=== PATIENT | male | born 1955 | race Two or more races ===

== ENCOUNTER 2018-01-31 22:27 | Emergency (ER) | payer OTHER ==
[~2018-01-31] VITALS: Ht 175.3 cm; Wt 76.7 kg
[~2018-01-31 22:27] MED LIST: ACET325 PO; AMIT25 PO; AMLO5 PO; AMLODIPINE; ASPI325 PO; ATOR80 PO; Advil200 M1; Amlodipine Besy10 MG PO; CIPR500 PO; Colace100 MG PO; DOCU100 PO; Dilantin 100 m100 MG PO; HYDR1TAB94 PO; HYDROCODONE; Inderal40 MG PO; Kristalose20 GM PO; LISI5; LISI5 PO; METO25 PO; Norco 5-325 Ta1 EACH PO; Norvasc5 MG PO; OMEP40CA12 PO; PSYL5.85P PO; TRAM50 PO
[2018-01-31 23:14] LABS: BASOPHILS ABSOLUTE AUTO 0.03 K/mm3 (0.00-0.23); BASOPHILS PERCENT AUTO 1 % (0-2); EOSINOPHILS ABSOLUTE AUTO 0.21 K/mm3 (0.00-0.68); EOSINOPHILS PERCENT AUTO 3 % (0-6); Hematocrit 43.5 % (37.0-53.0); Hemoglobin 13.9 g/dL (13.5-17.5); IMMATURE GRAN ABSOLUTE AUTO 0.02 K/mm3 (0.00-0.10); IMMATURE GRAN PERCENT AUTO 0 % (0-1); LYMPHOCYTES ABSOLUTE AUTO 1.68 K/mm3 (0.84-5.20); LYMPHOCYTES PERCENT AUTO 27 % (21-46); MONOCYTES ABSOLUTE AUTO 0.48 K/mm3 (0.16-1.47); MONOCYTES PERCENT AUTO 8 % (4-13); Mean Corpuscular HGB 29.1 pg (26.0-34.0); Mean Corpuscular Volume 91 fL (80-100); Mean Platelet Volume 9.5 fL (9.1-12.4); NEUTROPHILS ABSOLUTE AUTO 3.86 K/mm3 (1.96-9.15); NEUTROPHILS PERCENT AUTO 62 % (41-73); Platelet Count 210 K/mm3 (150-400); RDW Coefficient Variation 13.7 % (11.7-14.2); RDW Standard Deviation 45.8 fL (35.1-46.3); Red Blood Cell Count 4.78 M/mm3 (4.30-5.90); White Blood Cell Count 6.28 K/mm3 (4.00-11.30)
[2018-01-31 23:35] LABS: Anion Gap 9 mmol/L (6-16); Blood Urea Nitrogen 24 mg/dL (8-24); Bun/Creatinine Ratio 22.9 (12.0-20.0); CO2, Blood 22 mmol/L (21-32); Calcium, Blood 7.9 mg/dL (8.5-10.1); Chloride, Blood 111 mmol/L (98-108); Creatinine, Blood 1.05 mg/dL (0.60-1.20); Glomerular Filtration Rate >60 (60-); Glucose, Blood 85 mg/dL (70-99); Potassium, Blood 3.5 mmol/L (3.5-5.5); Sodium, Blood 142 mmol/L (136-145); Troponin I <0.015 ng/mL (0.000-0.040)
== END 2018-02-01 00:42 | disposition home or self-care (01) ==
LOC: ER 22:27
PROVIDERS: Emergency Medicine
DX: Z71.1 Person with feared health complaint in whom no diagnosis is made (principal); Z86.73 Personal history of transient ischemic attack (TIA), and cerebral infarction without residual deficits
CPT/HCPCS: 36415; 70450; 80048; 84484; 85025; 93005; 93010; 99284

== ENCOUNTER 2019-01-05 15:30 | Emergency (ER) | payer OTHER ==
[~2019-01-05] VITALS: Ht 170.2 cm; Wt 72.6 kg
[~2019-01-05 15:30] MED LIST changes: +Tylenol325 MG PO
== END 2019-01-05 17:53 | disposition home or self-care (01) ==
LOC: ER 15:30
DX: T18.128A Food in esophagus causing other injury, initial encounter (principal); Z86.73 Personal history of transient ischemic attack (TIA), and cerebral infarction without residual deficits
CPT/HCPCS: 36415; 96374; 99283-25; J1610

== ENCOUNTER 2019-02-07 02:34 | Day surgery (SDC) | payer OTHER ==
[~2019-02-07] VITALS: Ht 170.2 cm; Wt 61.2 kg
--- NOTE | 2019-02-07 08:30 | NUR ---
02/07/19 0829 Epifanio Alas History, Chart, Medications and Allergies reviewed before start of procedure.MONITOR INTACT WITH CONTINUOUS PULSE OXIMETRY AND INTERMITTENT BP.3-LEAD EKG REVIEWED WITH PHYSICIAN PRIOR TO START OF PROCEDURE.O2 VIA N/C INTACT THROUGHOUT SEDATION/PROCEDURE. Patient confirms NPO status and agrees with scheduled surgery.PATIENT DETERMINED TO BE ASA APPROPRIATE FOR PROPOFOL SEDATION PRIOR TO START OF PROCEDURE BY DR. FUNG.
--- NOTE | 2019-02-07 11:10 | NUR ---
AWAKE, PT TOLERATING LIQUIDS, AND PUDDING, DENIES ANY DISCOMFORT AT THIS TIME, SITTING ON RECLINER CHAIR.
--- NOTE | 2019-02-07 12:12 | NUR ---
DISCHARGE D/C'D HOME, DC INSTRUCTIONS GIVEN, VERBALIZED UNDERSTANDING, IV DC'D, CATH INTACT, DC'D VIA W/C TRANSPORT.
== END 2019-02-07 12:11 | disposition home or self-care (01) ==
LOC: ER 02:34 → SURS 07:20 → ER 07:20 → SURS 07:20 → ORSCMMR 09:41 → SURS 10:02 → ORSCMMR 12:11 → SURS 12:11
PROVIDERS: Internal Medicine Gastroenterology
PROC: 0DC58ZZ Extirpation of Matter from Esophagus, Via Natural or Artificial Opening Endoscopic (ICD-10-PCS; principal; 2019-02-07 07:30)
PROC: 0D758ZZ Dilation of Esophagus, Via Natural or Artificial Opening Endoscopic (ICD-10-PCS; principal; 2019-02-07 07:30)
DX: T18.128A Food in esophagus causing other injury, initial encounter (principal); Q39.4 Esophageal web; I10 Essential (primary) hypertension; E78.5 Hyperlipidemia, unspecified; I69.354 Hemiplegia and hemiparesis following cerebral infarction affecting left non-dominant side; R56.9 Unspecified convulsions
CPT/HCPCS: 71045; 96374; 96375; 99284-25; J1610; J2704; J3360; J7120

== ENCOUNTER 2019-04-09 22:52 | Emergency (ER) | payer OTHER ==
[~2019-04-09] VITALS: Ht 165.1 cm; Wt 61.2 kg
[2019-04-10] MEDS ORDERED: Norco 5-325 Ta1 EACH PO (00:38)
== END 2019-04-10 02:15 | disposition home or self-care (01) ==
LOC: ER 22:52
DX: T21.02XA Burn of unspecified degree of abdominal wall, initial encounter (principal); T31.0 Burns involving less than 10% of body surface; X10.1XXA Contact with hot food, initial encounter; Z88.5 Allergy status to narcotic agent
CPT/HCPCS: 16020; 96374-59; 99283-25; A9270; J1170

== ENCOUNTER 2019-11-18 15:23 | Emergency (ER) | payer OTHER ==
[~2019-11-18] VITALS: Ht 170.2 cm; Wt 72.6 kg
[2019-11-18 18:18] LABS: BASOPHILS ABSOLUTE AUTO 0.04 K/mm3 (0.00-0.23); BASOPHILS PERCENT AUTO 0 % (0-2); EOSINOPHILS ABSOLUTE AUTO 0.13 K/mm3 (0.00-0.68); EOSINOPHILS PERCENT AUTO 1 % (0-6); Hemoglobin 12.5 g/dL (13.5-17.5); IMMATURE GRAN ABSOLUTE AUTO 0.03 K/mm3 (0.00-0.10); IMMATURE GRAN PERCENT AUTO 0 % (0-1); LYMPHOCYTES ABSOLUTE AUTO 0.91 K/mm3 (0.84-5.20); LYMPHOCYTES PERCENT AUTO 10 % (21-46); MONOCYTES PERCENT AUTO 9 % (4-13); Mean Corpuscular HGB 28.4 pg (26.0-34.0); Mean Corpuscular HGB Conc 31.3 g/dL (31.5-36.5); Mean Corpuscular Volume 91 fL (80-100); Mean Platelet Volume 8.9 fL (9.1-12.4); NEUTROPHILS ABSOLUTE AUTO 7.29 K/mm3 (1.96-9.15); NEUTROPHILS PERCENT AUTO 79 % (41-73); Platelet Count 293 K/mm3 (150-400); RDW Coefficient Variation 14.7 % (11.7-14.2); RDW Standard Deviation 49.1 fL (35.1-46.3)
[2019-11-18 18:49] LABS: Anion Gap 6 mmol/L (6-16); Blood Urea Nitrogen 26 mg/dL (8-24); Bun/Creatinine Ratio 27.8 (12.0-20.0); CO2, Blood 30 mmol/L (21-32); Calcium, Blood 8.6 mg/dL (8.5-10.1); Chloride, Blood 110 mmol/L (98-108); Creatinine, Blood 0.93 mg/dL (0.60-1.20); Glomerular Filtration Rate >60 (60-); Glucose, Blood 90 mg/dL (70-99); Potassium, Blood 3.5 mmol/L (3.5-5.5); Sodium, Blood 146 mmol/L (136-145)
[2019-11-18] MEDS ORDERED: IBUP600 PO (19:20)
== END 2019-11-18 21:15 | disposition home or self-care (01) ==
LOC: ER 15:23
PROVIDERS: Emergency Medicine
DX: S20.212A Contusion of left front wall of thorax, initial encounter (principal); Z86.73 Personal history of transient ischemic attack (TIA), and cerebral infarction without residual deficits; X58.XXXA Exposure to other specified factors, initial encounter
CPT/HCPCS: 36415; 73030; 80048; 85025; 99284-25; A9270-GY

== ENCOUNTER 2019-12-02 19:09 | Inpatient (IN) | payer OTHER ==
[~2019-12-02] VITALS: Ht 160 cm; Wt 56.4 kg
[~2019-12-02 19:09] MED LIST changes: +IBUP600 PO
[2019-12-02 19:35] LABS: BASOPHILS ABSOLUTE AUTO 0.04 K/mm3 (0.00-0.23); BASOPHILS PERCENT AUTO 0 % (0-2); EOSINOPHILS ABSOLUTE AUTO 0.01 K/mm3 (0.00-0.68); EOSINOPHILS PERCENT AUTO 0 % (0-6); Hematocrit 48.1 % (37.0-53.0); Hemoglobin 15.1 g/dL (13.5-17.5); IMMATURE GRAN ABSOLUTE AUTO 0.11 K/mm3 (0.00-0.10); IMMATURE GRAN PERCENT AUTO 1 % (0-1); LYMPHOCYTES ABSOLUTE AUTO 1.26 K/mm3 (0.84-5.20); LYMPHOCYTES PERCENT AUTO 7 % (21-46); MONOCYTES ABSOLUTE AUTO 1.59 K/mm3 (0.16-1.47); MONOCYTES PERCENT AUTO 8 % (4-13); Mean Corpuscular HGB 28.2 pg (26.0-34.0); Mean Corpuscular HGB Conc 31.4 g/dL (31.5-36.5); Mean Corpuscular Volume 90 fL (80-100); Mean Platelet Volume 9.2 fL (9.1-12.4); NEUTROPHILS ABSOLUTE AUTO 15.85 K/mm3 (1.96-9.15); NEUTROPHILS PERCENT AUTO 84 % (41-73); Platelet Count 545 K/mm3 (150-400); RDW Coefficient Variation 14.3 % (11.7-14.2); RDW Standard Deviation 47.1 fL (35.1-46.3); Red Blood Cell Count 5.35 M/mm3 (4.30-5.90); White Blood Cell Count 18.86 K/mm3 (4.00-11.30)
[2019-12-02 20:15] LABS: Albumin, Blood 2.8 g/dL (3.4-5.0); Albumin/Globulin Ratio 0.6 (0.8-1.8); Bilirubin, Total 0.7 mg/dL (0.1-1.0); Bun/Creatinine Ratio 38.4 (12.0-20.0); Calcium, Blood 9.3 mg/dL (8.5-10.1); Creatinine, Blood 1.85 mg/dL (0.60-1.20); Globulin, Blood 4.8 g/dL (2.2-4.0); Potassium, Blood 4.7 mmol/L (3.5-5.5); Total Protein, Blood 7.6 g/dL (6.4-8.2)
[2019-12-03 04:41] LABS: BASOPHILS ABSOLUTE AUTO 0.04 K/mm3 (0.00-0.23); BASOPHILS PERCENT AUTO 0 % (0-2); Bicarbonate Venous 15.9 mmol/L (24.0-30.0); EOSINOPHILS PERCENT AUTO 0 % (0-6); Hematocrit 36.5 % (37.0-53.0); Hemoglobin 11.4 g/dL (13.5-17.5); IMMATURE GRAN ABSOLUTE AUTO 0.09 K/mm3 (0.00-0.10); IMMATURE GRAN PERCENT AUTO 0 % (0-1); LYMPHOCYTES ABSOLUTE AUTO 0.95 K/mm3 (0.84-5.20); LYMPHOCYTES PERCENT AUTO 5 % (21-46); MONOCYTES ABSOLUTE AUTO 1.11 K/mm3 (0.16-1.47); MONOCYTES PERCENT AUTO 6 % (4-13); Mean Corpuscular HGB 28.2 pg (26.0-34.0); Mean Corpuscular HGB Conc 31.2 g/dL (31.5-36.5); Mean Corpuscular Volume 90 fL (80-100); Mean Platelet Volume 9.3 fL (9.1-12.4); NEUTROPHILS ABSOLUTE AUTO 17.89 K/mm3 (1.96-9.15); NEUTROPHILS PERCENT AUTO 89 % (41-73); PCO2 Venous 22.3 mmHg (38-42); PO2 Venous 108 mmHg (38-42); Platelet Count 338 K/mm3 (150-400); RDW Coefficient Variation 14.3 % (11.7-14.2); RDW Standard Deviation 47.6 fL (35.1-46.3); Red Blood Cell Count 4.04 M/mm3 (4.30-5.90); White Blood Cell Count 20.08 K/mm3 (4.00-11.30); pH Blood Venous 7.36 (7.34-7.37)
[2019-12-03 04:42] LABS: Base Excess Venous -12.7 mmol/L
[2019-12-03 04:58] LABS: Anion Gap 11 mmol/L (6-16); Blood Urea Nitrogen 69 mg/dL (8-24); Bun/Creatinine Ratio 35.9 (12.0-20.0); CO2, Blood 14 mmol/L (21-32); Calcium, Blood 7.8 mg/dL (8.5-10.1); Chloride, Blood 120 mmol/L (98-108); Creatinine, Blood 1.92 mg/dL (0.60-1.20); Glomerular Filtration Rate 38 (60-); Glucose, Blood 96 mg/dL (70-99); Potassium, Blood 4.6 mmol/L (3.5-5.5); Sodium, Blood 145 mmol/L (136-145); Vancomycin, Random 26.7 ug/mL
[2019-12-03 06:03] LABS: Source, Urine Catheter
--- NOTE | 2019-12-03 06:20 | NUR ---
SHIFT SUMMARY PT ARRIVED FROM UNIT UNRESONSIVE, NOT FOLLOWING COMMANDS, ONLY MOANING. NOW, PT IS MOANING AND ANSWERING SIMPLE QUESTIONS (YES/NO). PT STILL NOT FOLLOWING COMMANDS. PT HAS LEFT SIDE DEFICITS FROM A PREVIOUS CVA. BLADDER SCAN REVEALING 515ML URINE IN BLADDER, BENITEZ CATHETER INSERTED FOR URINE RETENTION AND SKIN ISSUES. PT HAS WHAT APPEARS TO BE AN OLD BURN ON L SIDE, OPEN AND OOZING SEROUS SANGUINOUS FLUID. ENTIRE BACK IS REDDENED, STAGE 1 PRESSURE ULCER. STAGE 1 ULCER ON BUTTOCKS WELL. PATIENT L ARM DOES NOT FLEX. PATIENT LEGS CONTRACTED- CAN NOT STRAIGHTEN. FEET ARE COOL AND L FOOT IS DISCOLORED WITH PATCHY WHITE MOIST SKIN. LEFT HAND ALSO THE SAME. THERE IS ALSO SKIN BREAKDOWN BEHIND BILATERAL KNEES AND ANKLES. CAP REFILL GREATER THAN 3SECONDS. PATIENT HAD BALOONING OF RCA WITH R RADIAL ACCESS. TR BAND IN PLACE WITH 6ML AIR REMAINING. NO HEMATOMA OR BLEEDING FROM TR BAND NOTED. PATIENT ON HEPARIN GTT AT 13 U/KG/HR (14.6 ML/HR). LACTIC ACID TRENDING DOWN. PATIENT APPEARS TO BE IN PAIN DESPITE 50MCG FENTANYL PRN Q4H. LUNGS CTAB. VSS. AFEBRILE. WILL CONTINUE TO MONITOR.
[2019-12-03 06:49] LABS: Blood, Urine 3+ (Neg); Glucose Qualitative, Urine Neg (Neg); Ketones, Urine 1+ (Neg); Leukocyte Esterase, Urine 2+ (Neg); Nitrite, Urine Neg (Neg); Protein, Urine 2+ (Neg); Specific Gravity, Urine 1.015 (1.003-1.022); Urobilinogen, Urine 1+ (Normal)
[2019-12-03 07:02] LABS: Appearance, Urine Cloudy (Clear); Bilirubin, Urine 1+ (Neg); Color, Urine Amber (P-Yellow)
[2019-12-03 07:05] LABS: Bacteria Many /hpf; Mucus Heavy (0-Heavy); Squamous Epithelial Cells Few /hpf (Few)
--- NOTE | 2019-12-03 08:01 | NUR ---
ASSUMED CARE RECEIVED REPORT FROM ROSCOE GRANADOS. PT IS LYING IN BED MOANING, AWAKE. ABLE TO ANSWER SOME QUESTIONS WITH YES/NO. HE HAS A TR BAND WITH 2ML INFLATED. RIGHT RADIAL SITE. GOOD PULSE, CAP REFIL, AND WARMTH TO HAND. HE IS ON LR AT 125ML/HR AND HEPARIN AT 13 UNITS/KG/HR. HE HAS STABLE VITALS, ST DEPRESSION IN V1, BUT PER REPORT IS AN IMPROVMENT, GOOD BP. BED LOW AND LOCKED.
--- NOTE | 2019-12-03 10:51 | NUR ---
echocardiogram completed
--- NOTE | 2019-12-03 12:00 | NUR ---
UPDATE TR BAND OFF, OPSITE AND HANDBOARD IN PLACE. SITE IS [facility]. HEPARIN GTTP WAS INCREASED TO 15UNITS/KG/HOUR, ALONG WITH A 3000 UNIT BOLUS AROUND [id number]; DUE TO A SUBTHERAPEUTIC PTT. FAMILY HAS BEEN BY AND WILL BE BACK, INTERESTED INTO TALKING TO PALLIATIVE CARE.
--- NOTE | 2019-12-03 17:31 | NUR ---
UPDATE FAMILY SAID THEY DO NOT HAVE A CAR, SO SOON THEY GET AHOLD OF SOMEONE THAT CAN HELP THEY WILL COME TO HOSPITAL. PALLIATIVE CARE AND CARE MANAGEMENT INTERESTED IN MEETING WITH FAMILY TO DISCUSS PT'S SITUATION. DR. BLACKWOOD CAME TO ICU AND EVALUATED PT. SHE TOLD ME TO PASS ALONG THE MESSAGE THAT SHE WOULD LIKE TO BE CALLED WITH THE PRELIM RESULTS OF THE URINE CULTURE.
--- NOTE | 2019-12-03 19:30 | NUR ---
ASSUMED CARE NOTE: ASSUMED CARE OF PT AT 1900, RECEVIED REPORT FROM LASHAY MALHOTRA. PT RESPONDS TO VERBAL AND PAINFUL STIMULI. PT IS UNABLE TO FOLLOW COMMANDS AT THIS TIME. HE REPEATS THE SAME WORDS " PLEASE HELP ME". PT IS ON RA WITH SPO2 AT 100. PT IN SINUS ARACELIS WITH HR IN THE 50'S. BENITEZ DRAINING PUMA URINE. BED AT LOWEST LEVEL. WILL MONITOR PT T/O SHIFT. HEPARIN RUNNING AT 15U/KG/HR.
--- NOTE | 2019-12-03 19:44 | NUR ---
SHIFT SUMMARY/UPDATE PT IS SLIGHTLY OBTUNDED S/P DILAUDID (1MG IV). HE HAS BEEN SLEEPING, AND WHEN AWAKE ISN'T ALERT HE WAS THIS MORNING. HE STILL MOANS, BUT DOES NOT SPEAK MUCH. HIS BLOOD PRESSURE WAS SOFT (SEE VS). AT THE END OF THE SHIFT HIS RIGHT SIDE OF HIS BODY WAS MORE COOL THAN HIS LEFT SIDE. SPECIALLY IN HIS HAND AND FOOT. HE STILL HAD PULSES, AND CAP REFIL < 3s. HE HAS A POOR PLETH ON THE SPO2 PROBE. DILAUDID MAY NOT BE THE BEST CHOICE FOR HIM GOING FURTHER. HOWEVER, HE NEEDS PAIN CONTROL, BECAUSE THE WOUNDS ON HIS BODY ARE EXTENSIVE AND SEVERE. THE FAMILY STATES THEY ARE NEW TO THE LAST FEW DAYS. BUT THESE WOUNDS LOOK LIKE THEY HAVE BEEN DEVELOPING. PALLIATIVE CARE, STAGE PRODUCER, AND CARE MANAGEMENT ARE INVOLVED. I BELIEVE AN APS CASE HAS BEEN STARTED. FAMILY HAS ONLY BEEN BY FOR A FEW MINUTES. THEY DO NOT HAVE A CAR SO TRANSPORTATION IS AN ISSUE FOR THEM. THEY ARE PLANNING ON COMING BY [facility]. DR. BLACKWOOD HAS COME BY TODAY AND HAS SEEN PT, SHE WILL COMMUNICATE WITH THE HOSPITALIST REGARDING PLAN OF CARE.
--- NOTE | 2019-12-04 01:08 | NUR ---
UPDATE: PT YELLING OUT "'PLEASE HELP ME". WHEN ASKED WHAT HE NEEDS HE STATES " I CAN'T BREATH" REACHING FOR NG TUBE. SPO2 READING 100%. LUNG SOUNDS CLEAR T/O. PT STATES HE IS IN PAIN. MEDICATING PER EMAR.
--- NOTE | 2019-12-04 03:17 | NUR ---
UPDATE: 0130: PT SCREAMING OUT " I AM GOING TO ", " I AM GOING TO FALL, HELP ME". PT REPOSITIONED AND ORAL CARE WAS PROVIDED. PT C/O PAIN, PT MEDICATED PER EMAR.
[2019-12-04 06:03] LABS: BASOPHILS ABSOLUTE AUTO 0.01 K/mm3 (0.00-0.23); BASOPHILS PERCENT AUTO 0 % (0-2); EOSINOPHILS ABSOLUTE AUTO 0.01 K/mm3 (0.00-0.68); EOSINOPHILS PERCENT AUTO 0 % (0-6); Hematocrit 31.7 % (37.0-53.0); Hemoglobin 9.8 g/dL (13.5-17.5); IMMATURE GRAN ABSOLUTE AUTO 0.05 K/mm3 (0.00-0.10); IMMATURE GRAN PERCENT AUTO 0 % (0-1); LYMPHOCYTES ABSOLUTE AUTO 1.13 K/mm3 (0.84-5.20); LYMPHOCYTES PERCENT AUTO 9 % (21-46); MONOCYTES ABSOLUTE AUTO 1.14 K/mm3 (0.16-1.47); MONOCYTES PERCENT AUTO 9 % (4-13); Mean Corpuscular HGB 28.5 pg (26.0-34.0); Mean Corpuscular HGB Conc 30.9 g/dL (31.5-36.5); Mean Corpuscular Volume 92 fL (80-100); Mean Platelet Volume 9.4 fL (9.1-12.4); NEUTROPHILS ABSOLUTE AUTO 10.01 K/mm3 (1.96-9.15); NEUTROPHILS PERCENT AUTO 81 % (41-73); Platelet Count 271 K/mm3 (150-400); RDW Coefficient Variation 14.6 % (11.7-14.2); RDW Standard Deviation 49.1 fL (35.1-46.3); Red Blood Cell Count 3.44 M/mm3 (4.30-5.90); White Blood Cell Count 12.35 K/mm3 (4.00-11.30)
[2019-12-04 06:26] LABS: Alanine Aminotransfer (ALT/SGP 34 U/L (12-78); Albumin, Blood 1.9 g/dL (3.4-5.0); Albumin/Globulin Ratio 0.6 (0.8-1.8); Alk Phos 55 U/L (50-136); Anion Gap 7 mmol/L (6-16); Aspartate Aminotrans (AST/SGOT 149 U/L (12-37); Bilirubin, Total 0.4 mg/dL (0.1-1.0); Blood Urea Nitrogen 52 mg/dL (8-24); Bun/Creatinine Ratio 37.1 (12.0-20.0); CO2, Blood 19 mmol/L (21-32); Chloride, Blood 121 mmol/L (98-108); Globulin, Blood 3.2 g/dL (2.2-4.0); Glomerular Filtration Rate 54 (60-); Glucose, Blood 79 mg/dL (70-99); Potassium, Blood 3.8 mmol/L (3.5-5.5); Sodium, Blood 147 mmol/L (136-145); Total Protein, Blood 5.1 g/dL (6.4-8.2); Vancomycin, Random 22.2 ug/mL
--- NOTE | 2019-12-04 06:26 | NUR ---
SHIFT SUMMARY: SEE PREVIOUS NOTES. PT REMAINS ALERT AND ORIENTED TO SELF. PT HAS BEEN C/O PAIN T/O SHIFT, HAS REQUIRED PAIN MEDS AROUND THE CLOCK. AT 0600, PT PULLED OUT NG TUBE. NEW NG TUBE WAS PLACED, AWATING X-RAY FOR PLACEMENT CONFIRMATION. SWR APPLIED TO RIGHT WRIST. HEPARIN INCREASED TO 17U/KG/HR. WILL CONTINUE TO MONITOR PT UNTIL REPORT IS GIVEN TO ONCOMING SHIFT. BED AT LOWEST LEVEL.
--- NOTE | 2019-12-04 07:15 | NUR ---
ASSUMED CARE: THIS RN ENTERS ROOM D/T HEARING PT CALL OUT "HELP ME". UPON ENTERING THE ROOM PT STATES HIS NOSE HURTS, EDUCATED PT ON THE REASON FOR HIS NOSE HURTING D/T HAVING AN NG TUBE COMING OUT OF IT. ATTEMPTED TO REPOSSITION THE TUBE, BUT PT CONTINUES TO YELL OUT "HELP ME". EDUCATED THE PT ON NEEDING TO GET REPORT AND WILL ATEMPT TO ASSIST THE PT IN BETTER CARE OF HIS DISCOMFORT. TALKED WITH RN PROVIDER RELATIONS MELIDA LAWRENCE AND WAS NOTIFIED DILAUIDID WAS HELD AND CAN NOW BE GIVEN. OBTAINED 1MG OF DILAUDID FROM THE [facility] AND RECEIVED BEDSIDE REPORT FROM DAY RN. WHILE GETTING REPORT PT STATES NUMEROUS TIMES "HELP ME" AT ONE POINT HE SAID "TAKE THIS OUT OF MY NOSE" PT EDUCATED ON THE NEED FOR IT AND IT NEEDING TO BE REPLACED IF HE TAKES IT OUT. ALTHOUGH THIS RN AND THE NOC RN ARE IN THE ROOM PT CONTINUES TO YELL OUT "HELP ME". PT GIVEN PAIN MEDCIATIONS AT THIS TIME.
--- NOTE | 2019-12-04 07:45 | NUR ---
DR CARTER: IN TO SEE THE PT CULTURE SWAB OF THE L HIP OBTAINED. STATES THE CIRCULAR SCABS TRHAT ARE PRESENT HAVE BEEN THERE FOR "AWHILE" IN WEEKS. STATES SHE HAS NOT SEEN HIM ON AN OUT PT BASIS FOR HIS, BUT FROM HER EXPERIANCE THE WOUNDS/SCABS HAVE BEEN THERE FOR AT LEAST WEEKS NOT 'JUST APPERED' PREVIOUSLY REPORTED FROM FAMILY TO PREVIOUS STAFF MEMBERS. CULTURE SENT TO LAB.
--- NOTE | 2019-12-04 11:55 | NUR ---
FAMILY: TALKED ON THE PHONE WITH LAILA THE POA FOR THE PT. SHE STATES PATIENTS INFECTIONS COULD BE FROM HIM SCRATCHING AT HIS SKIN AFTER HE SOILS HIMSELF. SHE CONTINUES TO STATE THE PT HAD "SOMEONE" COME OUT TO HELP WITH THE PT, BUT THEY STOPPED COMING D/T THE WAY HE WOULD TREAT THEM. STATES PT ONLY LAYS ON HIS L SIDE AND USES AN OVER THE HEAD DEVICE TO MOVE SELF, BUT FAVORS THAT L SIDE. SHE CONTINUES TO STATE WHEN "THEY" WOULD CHANGE HIM THEY DIDN'T NOTICE THIS ISSUE WITH HIS SKIN UNTIL JUST PRIOR TO HIM COMTING TO THE HOSPITAL. LAILA ALSO STATES PRIOR TO THIS ADMIT PT WAS BROUGHT TO THE ED AND WAS DISCHARGE WITH JUST IBUPROPHEN. THIS RN CALLED ADITHYA ANG TO CALL LAILA TO DISCUSS DISCHARGE PLANNING AND PALLATIVE CARE.
[2019-12-04 13:43] LABS: Vancomycin, Random 20.1 ug/mL
--- NOTE | 2019-12-04 15:00 | NUR ---
EDUCATION TO PT AND FAMILY: FILLER WIPER ARIVES TO TALK WITH THE FAMILY. PALATIVE CARE AND THE CASE MANAGURE NOTIFY THIS RN THEY ARE GOING TO BE DISCHARGING PT HOME ON HOSPICE. FAMILY EDUCATED ON NEED TO CHANGE CODE STATUS. FAMILY APPEARS TO BE TALKING OVER FILLER WIPER OR THIS RN WHILE TRYING TO EDUCATE ON WHAT DNR CODE STATUS MEANS. DR CAME IN TO THE ROOM TO TALK WITH THE FAMILY. THIS RN REMAINED IN THE ROOM. THE FAMILY WAS NOTED TO INTRUPT THE DR ON SEVERAL OCCATIONS APPEARING TO ALMOST TALK OVER THE DR. THIS RN IS UNAWARE IF FAMILY IS FULLY UNDERSTANDING THE SITUATION AT HAND. DR VERBALIZED TO THE FAMILY WITH THIS RN IN THE ROOM PT IS NOT TO HAVE ANYTHING TO EAT OR DRINK D/T RISK OF ASPIRATION. WILL COINTINUE TO MONITOR AND ASSESS FURTHER.
[2019-12-04 15:55] LABS: U Amphetamine Screen Not Detected; U Barbituate Screen Not Detected; U Benzodiazapine Screen Not Detected; U Buprenorphine Screen Not Detected; U Cannabinoids Screen DETECTED; U Cocaine Screen Not Detected; U Methadone Screen Not Detected; U Methamphetamine Screen Not Detected; U Opiates Screen DETECTED; U Oxycodone Screen Not Detected; U Phencyclidine Screen Not Detected; U Propoxyphene Screen Not Detected
--- NOTE | 2019-12-04 16:18 | NUR ---
Clinical Visit; Pt is resting quietly for some of the visit. Towards the end of the visit, he became somewhat agitated and was comforted by his family. Discussed plan for pt to discharge to hospice. Present is the pt's nephew and a caregiver, Ana. They are agreeable to take him home on hospice. Chary, social insurance adviser, is present also and will begin on arrangements for discharge. They are not sure they want to place him on comfort care. They express that they may want to continue to treatment until the pt discharges. They agree to communicate with nursing if they would like a change in the care plan. No other concerns. Hospice services are discussed. RN visits, bath aid, equipment.
--- NOTE | 2019-12-04 17:39 | NUR ---
UPDATE: PT IS HEARD YELLING OUT "HELP ME" "WATER". PT IS ASKED IF HE KNOWS WHERE HE IS HE STATES "NO" ASKED PT TO STATE THE YEAR PT STATES "I DON'T KNOW" PT ASKED WHO THE PRESEDENT IS PT STATES "I DON'T KNOW". REPOSSITIONED PT AND ATTEMPTED TO DO SOME SMALL ROM EXERCISES, BUT PT STATES "STOP THAT" PT PROVIDED WITH PAIN MEDICATIONS AFTER MINIMAL REPOSITIONING.
--- NOTE | 2019-12-04 18:45 | NUR ---
LOW BP: PT IS NOTED TO HAVE LOW BP AFTER GIVING 1MG OF DILAUDED PER ORDER. PT WAKES EASILY TO VERBAL STIMULATION. SAT UP APPROX 25 DEGREES AND GAVE 250 BOLUS OF LR. PT IS NOTED TO HAVE RETURNED TO A MORE NORMAL BP FOR HIM.
--- NOTE | 2019-12-04 20:30 | NUR ---
PT RESTING IN BED. WHEN ASKED WHERE HE IS PT STATES "AT THE BANK". ANY OTHER ORIENTATION QUESTIONS PT STATES "I DON'T KNOW". PT CONTINUOUSLY YELLS "HELP". WILL ALSO ASK FOR WATER. USED SUCTION SWAB TO MOISTEN MOUTH AND DID ORAL CARE BUT PT CONTINUES TO YELL FOR WATER. EDUCATED WHY WE CANNOT GIVE HIM WATER YET. PT HAS CONTRACTED BILAT LEGS AND L ARM. R ARM HAS LIMITED ROM BUT HE CAN REACH UP TO FACE AND GET TO NG TUBE. TOOK ABDOMINAL BINDER OFF TO GIVE SKIN SOME TIME TO BREATHE. SKIN HAS OPEN AREAS ALL THROUGHOUT BACK, LEFT SIDE, AND GROIN AREA. AIR CHUCKS IN PLACE TO ALLOW FOR SKIN TO BREATHE. SEE ASSESSMENT.
[2019-12-05 05:10] LABS: BASOPHILS ABSOLUTE AUTO 0.02 K/mm3 (0.00-0.23); BASOPHILS PERCENT AUTO 0 % (0-2); EOSINOPHILS ABSOLUTE AUTO 0.02 K/mm3 (0.00-0.68); EOSINOPHILS PERCENT AUTO 0 % (0-6); Hematocrit 28.1 % (37.0-53.0); Hemoglobin 8.6 g/dL (13.5-17.5); IMMATURE GRAN ABSOLUTE AUTO 0.07 K/mm3 (0.00-0.10); IMMATURE GRAN PERCENT AUTO 1 % (0-1); LYMPHOCYTES ABSOLUTE AUTO 0.98 K/mm3 (0.84-5.20); LYMPHOCYTES PERCENT AUTO 9 % (21-46); MONOCYTES ABSOLUTE AUTO 1.08 K/mm3 (0.16-1.47); MONOCYTES PERCENT AUTO 10 % (4-13); Mean Corpuscular HGB 28.2 pg (26.0-34.0); Mean Corpuscular HGB Conc 30.6 g/dL (31.5-36.5); Mean Corpuscular Volume 92 fL (80-100); Mean Platelet Volume 9.6 fL (9.1-12.4); NEUTROPHILS ABSOLUTE AUTO 8.86 K/mm3 (1.96-9.15); NEUTROPHILS PERCENT AUTO 80 % (41-73); Platelet Count 218 K/mm3 (150-400); RDW Coefficient Variation 14.4 % (11.7-14.2); RDW Standard Deviation 48.9 fL (35.1-46.3); Red Blood Cell Count 3.05 M/mm3 (4.30-5.90); White Blood Cell Count 11.03 K/mm3 (4.00-11.30)
[2019-12-05 05:54] LABS: Alanine Aminotransfer (ALT/SGP 25 U/L (12-78); Albumin, Blood 1.7 g/dL (3.4-5.0); Albumin/Globulin Ratio 0.5 (0.8-1.8); Alk Phos 53 U/L (50-136); Anion Gap 9 mmol/L (6-16); Aspartate Aminotrans (AST/SGOT 68 U/L (12-37); Bilirubin, Total 0.3 mg/dL (0.1-1.0); Blood Urea Nitrogen 33 mg/dL (8-24); Bun/Creatinine Ratio 27.3 (12.0-20.0); CO2, Blood 18 mmol/L (21-32); Calcium, Blood 7.9 mg/dL (8.5-10.1); Chloride, Blood 122 mmol/L (98-108); Creatinine, Blood 1.21 mg/dL (0.60-1.20); Globulin, Blood 3.2 g/dL (2.2-4.0); Glomerular Filtration Rate >60 (60-); Glucose, Blood 68 mg/dL (70-99); Potassium, Blood 3.7 mmol/L (3.5-5.5); Sodium, Blood 149 mmol/L (136-145); Total Protein, Blood 4.9 g/dL (6.4-8.2)
[2019-12-05 05:56] LABS: Free Thyroxine 1.09 ng/dL (0.70-1.60); Vancomycin, Random 13.7 ug/mL
--- NOTE | 2019-12-05 06:42 | NUR ---
SUMMARY PT IS MORE AWAKE THIS AM. STILL CONFUSED AND UNABLE TO ANSWER ANY ORIENTATION QUESTIONS APPROPRIATELY. CONSTANTLY YELLING OUT "HELP" AND "I WANT WATER". TRIED TO EDUCATE ABOUT DANGERS OF GIVING HIM WATER RIGHT NOW. PT DOES NOT COMPREHEND. DID NOT SLEEP MUCH DURING THE NIGHT. R ARM IS STRONGER THIS AM. WHEN HAND IS RELEASED FROM RESTRAINT PT IMMEDIATELY REACHES FOR NG TUBE. REPOSITIONING AND ROM Q 2 HRS. PT HAS LIMITED ROM IN LEGS AND L ARM THAT ARE CONTRACTED. R ARM DOES NOT EXTEND ALL THE WAY. WILL REPORT TO DAY RN.
--- NOTE | 2019-12-05 11:17 | NUR ---
PT TRANSFERED PT TRANSFERED TO 324 AT 1100. PT ORIENTED TO ROOM AND UNIT. CALL LIGHT GIVEN TO PT. PT STATES HE IS IN PAIN. PAIN MEDS GIVEN PRIOR TO TRANSFER. REPOSITION OFFERED. PT STATES HE DOES NOT WANT TO BE MOVED. WILL CONTINUE TO MONITOR.
--- NOTE | 2019-12-05 12:51 | NUR ---
PT AGITATED/ CALLING INTO HALLWAY PT CONTINUOUSLY HOLLERING INTO HALLWAY FOR "HELP". PT STATES HE NEEDS HIS COUSIN. CURRENTLY LOOKING TO CONTACT PTS COUSIN. UNAWARE OF NUMBER FOR COUSIN. PT DISTURBING OTHER PATIENTS. PT TO BE MOVED TO [facility] WHEN ROOM AVAILABLE. PT THROWING CONTAINERS FOR FOOD FROM LUNCH IN ROOM. PALLATIVE ON BOARD. WILL CONTINUE TO MONITOR.
--- NOTE | 2019-12-05 13:18 | NUR ---
Pt visit this afternoon. Pt resting in bed and is yelling out help. Pt reports he is panicing and is afraid of choking. Pt through his empty bowl of soup across the floor. Assisted bedside ROSCOE Torres in repositioning Pt. Therapeutic listening and reasurance given to Pt. Called and spoke with Dr Urrutia. Discussed case and Dr Urrutia would like discussion with family regarding Pt's code status. Spoke with bedside ROSCOE Torres and discussed case. Placed order for Ativan 0.5mg PO every 4 hours as needed for anxiety per V/O from Dr Urrutia. Spoke with Caremantodd Romero and discussed case. Family plans to visit with Pt this afternoon. Palliative Care will F/U when family is present.
--- NOTE | 2019-12-05 16:04 | NUR ---
PT TRANSFERED PT TRANSFERED TO 347. NO CHANGES IN ASSESSMENT. REPORT GIVEN TO CLIFTON GARCIA RN.
--- NOTE | 2019-12-05 16:58 | NUR ---
ASSUMED PT CARE, REPORT RECIEVED FROM ROSCOE GRANT. PT TRANSFERRED BED-BED. HX L SIDED PARALYSIS, PT IS BEDBOUND. SKIN DISORDER/RASH NOTED L SIDE, BUTTOCKS, PERIAREA. BUTTOCKS ULCER NOTED, FOAM DRSG APPLIED. BENITEZ CATH PATENT DRNG YELLOW URINE w CLOUDS. IV SITE JIGNA 20GA PATENT INFUSING D51/2NS @ 100 ML/HR. PT IS A/O X2-3, AFFECT @ FIRST WAS CONFRONTATIONAL, VERBALLY ABUSIVE, THREATENING HOWEVER HE HAS BEEN ABLE TO CHANGE ATTITUDE, APOLOGIZE FOR BEHAVIOR. VSS.
--- NOTE | 2019-12-06 04:37 | NUR ---
SHIFT SUMMARY PT AWAKE AND ANXIOUS FOR FIRST HALF OF SHIFT. HE CALLS OUT FREQUENTLY FOR HELP AND DOES NOT USE CALL LIGHT. REDIRECTED FREQUENTLY. PT A/O TO SELF AND IS ABLE TO FOLLOW SOME DIRECTION. PT SPEECH AT TIMES IS INAPPROPRIATE AND NONSENSICAL. WOUND CARE PERFORMED THIS SHIFT TO LEFT OUTER THIGH. BENEDRYL ORDERED FOR ITCHING DUE TO SKIN RASH. PT COMPLAINS OF LEFT HIP PAIN AND WAS MEDICATED WITH IV DILAUDID PER ORDERS. BENITEZ IN PLACE PATENT AND DRAINING. PT HAS BEEN ABLE TO REST FOR A GOOD SECOND HALF OF SHIFT. NO ACUTE CHANGES TO REPORT. BED IN LOWEST POSITION, CALL LIGHT WITHIN REACH. WILL CONTINUE TO MONITOR AND REPORT TO ONCOMING RN.
[2019-12-06 09:02] LABS: BASOPHILS ABSOLUTE AUTO 0.01 K/mm3 (0.00-0.23); BASOPHILS PERCENT AUTO 0 % (0-2); EOSINOPHILS ABSOLUTE AUTO 0.14 K/mm3 (0.00-0.68); EOSINOPHILS PERCENT AUTO 2 % (0-6); Hematocrit 30.5 % (37.0-53.0); Hemoglobin 9.5 g/dL (13.5-17.5); IMMATURE GRAN PERCENT AUTO 1 % (0-1); LYMPHOCYTES ABSOLUTE AUTO 1.23 K/mm3 (0.84-5.20); LYMPHOCYTES PERCENT AUTO 13 % (21-46); MONOCYTES ABSOLUTE AUTO 0.96 K/mm3 (0.16-1.47); MONOCYTES PERCENT AUTO 10 % (4-13); Mean Corpuscular HGB 28.4 pg (26.0-34.0); Mean Corpuscular HGB Conc 31.1 g/dL (31.5-36.5); Mean Corpuscular Volume 91 fL (80-100); Mean Platelet Volume 9.5 fL (9.1-12.4); NEUTROPHILS ABSOLUTE AUTO 6.75 K/mm3 (1.96-9.15); NEUTROPHILS PERCENT AUTO 74 % (41-73); Platelet Count 218 K/mm3 (150-400); RDW Standard Deviation 46.7 fL (35.1-46.3); Red Blood Cell Count 3.35 M/mm3 (4.30-5.90); White Blood Cell Count 9.19 K/mm3 (4.00-11.30)
[2019-12-06 09:25] LABS: Alanine Aminotransfer (ALT/SGP 23 U/L (12-78); Albumin, Blood 1.8 g/dL (3.4-5.0); Albumin/Globulin Ratio 0.5 (0.8-1.8); Alk Phos 60 U/L (50-136); Anion Gap 7 mmol/L (6-16); Aspartate Aminotrans (AST/SGOT 38 U/L (12-37); Bilirubin, Total 0.3 mg/dL (0.1-1.0); Blood Urea Nitrogen 19 mg/dL (8-24); Bun/Creatinine Ratio 20.3 (12.0-20.0); CO2, Blood 20 mmol/L (21-32); Calcium, Blood 7.7 mg/dL (8.5-10.1); Chloride, Blood 114 mmol/L (98-108); Creatinine, Blood 0.94 mg/dL (0.60-1.20); Globulin, Blood 3.6 g/dL (2.2-4.0); Glomerular Filtration Rate >60 (60-); Glucose, Blood 128 mg/dL (70-99); Potassium, Blood 3.3 mmol/L (3.5-5.5); Sodium, Blood 141 mmol/L (136-145); Total Protein, Blood 5.4 g/dL (6.4-8.2)
--- NOTE | 2019-12-06 16:37 | NUR ---
SUMMARY PT CONTINUES WEAK/FATIGUED, STATE CONTINUING MALAISE. DX STEMI, HRR 70'S, BP STABLE. HE WAS NOT CANDIDATE FOR STENT OR BYPASS SURG. PALLIATIVE CARE RN WAITING FAMILY TO DISCUSS TX & CODE STATUS w PT, FOR NOW CONTINUES FULL CODE. HE HAS HX CVA w L SIDED PARALYSIS, HAS MINIMAL MOVEMENT OF R LEG, BLE CONTRACTED. R ARM FUNCTION IS WEAK. EXTENSIVE RASH/EXCORIATION L SIDE, PERIAREA & BUTTOCKS CLEANSED w SOAP/WATER, VASOLINE GAUZE APPLIED & BARRIER OINT APPLIED LIBERALLY TO DRY SCALING AREAS OF SKIN. IV ANTIBX CONTINUE. PT HAS DESCRIBED PAIN BLE, "ALL OVER". HAVE GIVEN DILAUDID FOR RELIEF. HEEL PROTECTORS & PILLOWS FOR SUPPORT. D51/2NS CONTINUES @ 100 ML/HR. SKIN TOGGLER HAS ASSISTED w ALL MEALS, GOOD APPETITE.
[2019-12-06 17:06] LABS: HIV SCREEN 4TH GENERATION WRFX Non Reactive (Non Reactive)
--- NOTE | 2019-12-07 06:15 | NUR ---
SHIFT SUMMARY PT SLEEPS ON AND OFF THIS SHIFT. PT A/O TO SELF, AND IS ABLE TO TELL ME WHO THE CURRENT PRESIDENT IS. HE REMEBERS MY NAME, AND THE TERMINAL WORKER'S NAME, BUT DOES NOT ANSWERS OTHER QUESTIONS IN REGARD TO ORIENTATION. HOWEVER, PT IS VERY FORGETFUL AND YELLS OUT "HELP" MOST OF THE TIME HE IS AWAKE. WHEN STAFF RESPONDS HE IS UNABLE TO TELL STAFF WHAT HE NEEDS. PT HAS A DIFFICULT TIME CONVENYING WHAT HE NEEDS AND SPEECH IS INCONGRUENT WITH WHAT HE IS ACTUALLY NEEDS. PT CAN AT TIMES BE LABILE AND INAPPROPRIATE AND USES VERBALLY ABUSE LANGUAGE WITH STAFF. OTHER TIMES HE CAN BE PLESANT. PT MEDICATED FOR PAIN AND ANXIETY THIS SHIFT. DRESSING TO LEFT THIGH CLEANED AND CHANGED THIS SHIFT. IV ABX AND FLUIDS PER ORDERS. STILL AWAITING ON FAMILY TO MAKE FURTHER ARRANGMENTS FOR CHANGE OF CODE STATUS AND DISCHARGE AT THIS TIME. ASSESSMENT HAS REMAINED UNCHANGED. BED IN LOWEST POSITION, CALL LIGHT WITHIN REACH. WILL CONTINUE TO MONITOR AND REPORT TO ONCOMING RN.
[2019-12-07 06:29] LABS: Anion Gap 5 mmol/L (6-16); Blood Urea Nitrogen 12 mg/dL (8-24); Bun/Creatinine Ratio 13.5 (12.0-20.0); CO2, Blood 21 mmol/L (21-32); Calcium, Blood 7.3 mg/dL (8.5-10.1); Chloride, Blood 111 mmol/L (98-108); Creatinine, Blood 0.89 mg/dL (0.60-1.20); Glomerular Filtration Rate >60 (60-); Glucose, Blood 107 mg/dL (70-99); Potassium, Blood 3.6 mmol/L (3.5-5.5); Sodium, Blood 137 mmol/L (136-145)
[2019-12-07] MEDS ORDERED: CLOP75 PO (13:25)
[2019-12-07] MEDS ORDERED: ASPI81CH PO (13:25)
[2019-12-07] MEDS ORDERED: METO25 PO (13:26)
[2019-12-07] MEDS ORDERED: DOCU100 PO (13:26)
[2019-12-07] MEDS ORDERED: FERSU300 PO (13:27)
[2019-12-07] MEDS ORDERED: Doxycycline Mo100 M1 PO (13:28)
--- NOTE | 2019-12-07 14:38 | NUR ---
advised staff to contact me withn family arrived to address polst.
--- NOTE | 2019-12-07 16:00 | NUR ---
SHIFT SUMMARY THE PATIENT HAS COMPLAINED OF PAIN A COUPLE TIMES TODAY WITH EFFECTIVE RELIEF FROM IV MEDICATION. HE CONTINUES ON IV ABX WITHOUT S/SX OF ADVERSE REACTIONS NOTED OR REPORTED. THE PATIENTDOES OFTEN SAY THINGS SUCH , "I AM GOING TO TODAY" OR "I FEEL LIKE THERE IS A KNIFE STABING ME ON THE INSIDES" BUT IN THE NEXT BREATH WILL REQUEST FOOD. ALERT AND ORIENTED TO HIMSELF TODAY. CALLS OUT FOR STAFF ASSIST. NO ACUTE CHANGES NOTED THIS SHIFT. WILL CONTINUE TO MONITOR AND PROVIDE CARE NEEDED.
--- NOTE | 2019-12-07 23:53 | NUR ---
PT has been hollering out frequently and information resource consultant roberts frequently. PT on aspiration precautions and supposed to take small sips of liquids. noncompliant with small sips. needs fed but able to hold cup. drank ensure. Has anxiety and is labile with staff. Forgetful and says he lives in [place]. PT with hx of CVA with LT UE and bilat LE contractures. Very painful with any movement. Has skin issues pyoderma and scratches with rt upper extremity. Medicated x 2 with ativan po and for pain with 1 mg iv dilaudid x 2 and for itching with benadryl x 1 with some helpful effect. Had STEMI with cardiac cath. not candidate for CABG. Has full code status.
--- NOTE | 2019-12-08 07:15 | NUR ---
PT continues on IV Fluids and antibotic to tx sepsis. He was medicated for anxiety x 3 and pain x 3 with helpful effect. PT scratches skin repeatedly and benadryl 25 mg x 2 helpful tx tx. fed several yogurts and pt drank ensure. [place] patent draining light yellow urine. no attempts to climb out of bed.
--- NOTE | 2019-12-08 14:03 | NUR ---
met with patients family to review hospice care and complete polst. family accepted hospice and demostarted understanding of level of care and plan for home care. Met with liason to set up needs. completed new polst family states want to have CPR as that is something he expressed . Review on the different senarios. and what cpr means they stand firm but wnat hospice.
--- NOTE | 2019-12-08 14:17 | NUR ---
PATIENT CHANGED AND PREPPED FOR DISCHARGE, ALL WITH THE EXCEPTION OF REMOVING HIS IV. BENITEZ CATH REMOVED. REPOSITIONED PATIENT. DISCHARGED PAPERWORK COMPLETED BY DISCHARGE WORKERS. PATIENT TO DISCHARGE AT 1600.
--- NOTE | 2019-12-08 14:35 | NUR ---
PIV REMOVED. PATIENT ONE STEP CLOSER TO DISCHARGE. AWAITING TRANSPORT AT APPROX 16...
--- NOTE | 2019-12-08 15:56 | NUR ---
PATIENT DID HAVE FIRST VOID S/P BENITEZ REMOVAL.
--- NOTE | 2019-12-08 16:23 | NUR ---
PATIENT WAS PICKED UP BY TRANSPORT AND DISCHARGED FROM THE HOSPITAL AT 1610. PATIENT TO GO HOME ON HOSPICE.
== END 2019-12-08 16:11 | disposition hospice, home (50) | DRG 853 ==
LOC: ER 19:09 → ICUW 21:26 → ICUE 21:26 → MEDS 12-05 11:10
PROVIDERS: Emergency Medicine; Internal Medicine; Pharmacist; ADMIT Family Medicine
PROC: 02703DZ Dilation of Coronary Artery, One Artery with Intraluminal Device, Percutaneous Approach (ICD-10-PCS; principal; 2019-12-02)
PROC: 4A023N7 Measurement of Cardiac Sampling and Pressure, Left Heart, Percutaneous Approach (ICD-10-PCS; 2019-12-02)
PROC: B2111ZZ Fluoroscopy of Multiple Coronary Arteries using Low Osmolar Contrast (ICD-10-PCS; 2019-12-02)
DX: A41.9 Sepsis, unspecified organism (principal); G92 Toxic encephalopathy; I21.19 ST elevation (STEMI) myocardial infarction involving other coronary artery of inferior wall; E43 Unspecified severe protein-calorie malnutrition; J69.0 Pneumonitis due to inhalation of food and vomit; N17.9 Acute kidney failure, unspecified; E87.2 Acidosis; E87.0 Hyperosmolality and hypernatremia; R64 Cachexia; Z86.73 Personal history of transient ischemic attack (TIA), and cerebral infarction without residual deficits; I10 Essential (primary) hypertension; E78.5 Hyperlipidemia, unspecified; D69.6 Thrombocytopenia, unspecified; I25.10 Atherosclerotic heart disease of native coronary artery without angina pectoris; L00 Staphylococcal scalded skin syndrome; L89.159 Pressure ulcer of sacral region, unspecified stage; Z68.23 Body mass index [BMI] 23.0-23.9, adult
CPT/HCPCS: 36415; 51702; 70450; 71045; 80048; 80053; 80202; 81001; 82607; 82728; 82746; 82803; 83540; 83550; 83605; 84439; 84484; 85025; 85347; 85730; 87040; 87070; 87086; 87205; 87389; 92526; 92610; 92937; 92941; 92973; 93005; 93010; 93306; 93458; 96365; 96367; 96375; 99152; 99153; 99285-25; C1725; C1751; C1753; C1757; C1769; C1887; C1894; J0461; J0692; J1170; J1644; J1650; J2250; J2543; J2916; J3010; J3370; J7030; J7042; J7050; J7120; Q0163; Q9967